=== PATIENT | male | born 1950 | race Caucasian/White ===

== ENCOUNTER 2016-09-12 13:34 | Inpatient (IN) | payer MEDICARE, OTHER, SELFPAY ==
[~2016-09-12] VITALS: Ht 177.8 cm; Wt 112.1 kg
[2016-09-12] MEDS ORDERED: SODIUM CHLORIDE FLUSH 10ML SYR IVF ONE (14:00)
[2016-09-12] MEDS ORDERED: SODIUM CHLORIDE 0.9% 1,000ML IVBOLUS ONE ×2 (14:00→15:30)
[2016-09-12] MEDS ORDERED: ONDANSETRON 2MG/ML, 2ML IVPush ONE (14:00)
[2016-09-12 14:07] LABS: HEMOGLOBIN 17.5 g/dL (13.7-18.0)
[2016-09-12 14:18] LABS: ASPARTATE AMINO TRANSFERASE 30 U/L (15-37); BLOOD UREA NITROGEN 44 mg/dL (7-18)
[2016-09-12] MEDS ORDERED: ONDANSETRON 2MG/ML, 2ML ONE (14:30)
[2016-09-12] MEDS ORDERED: FLUO20TA25 PO (15:11)
[2016-09-12] MEDS ORDERED: METF10002 PO (15:11)
[2016-09-12] MEDS ORDERED: HYDR50TA13 PO (15:11)
[2016-09-12] MEDS ORDERED: GLIP10TA13 PO (15:11)
[2016-09-12] MEDS ORDERED: METO-95 PO (15:11)
[2016-09-12] MEDS ORDERED: POTA10TA90 PO (15:11)
[2016-09-12] MEDS ORDERED: HYDR12.58 PO (15:11)
[2016-09-12] MEDS ORDERED: AMLO10TA2 PO (15:11)
[2016-09-12] MEDS ORDERED: LOVA40TA2 PO (15:11)
[2016-09-12] MEDS ORDERED: ONDANSETRON 2MG/ML, 2ML IVP PRN (16:30)
[2016-09-12] MEDS ORDERED: MORPHINE SULFATE 4 MG/ML, 1ML IVPush PRN (16:30)
[2016-09-12] MEDS: INSULIN REGULAR 100 UNITS/ML, 3ML VIAL SQ-INSULIN SCH ×2 (16:30→22:30)
[2016-09-12] MEDS ORDERED: LABETALOL 5MG/ML, 20ML IV PRN (16:30)
[2016-09-12 18:18] VITALS: BP 134/79
[2016-09-12] MEDS: PANTOPRAZOLE 40 MG IV IVPush SCH (18:23)
[2016-09-12] MEDS: SODIUM CHLORIDE 0.9% 1,000 ML IV SCH (18:23)
[2016-09-12] MEDS ORDERED: MAGNESIUM SULFATE PMX 4GM/100M 100 ML IV STA (18:35)
[2016-09-12 19:30] VITALS: BP 115/71
[2016-09-13 01:16] VITALS: BP 147/72
[2016-09-13 02:42] LABS: ICTOTEST POSITIVE
[2016-09-13] MEDS: INSULIN REGULAR 100 UNITS/ML, 3ML VIAL SQ-INSULIN SCH ×4 (04:30→20:15)
[2016-09-13 05:13] LABS: BLOOD UREA NITROGEN 53 mg/dL (7-18)
[2016-09-13 05:18] LABS: ASPARTATE AMINO TRANSFERASE 38 U/L (15-37)
[2016-09-13 05:22] LABS: HEMOGLOBIN 14.6 g/dL (13.7-18.0)
[2016-09-13] MEDS: SODIUM CHLORIDE 0.9% 1,000 ML IV SCH ×3 (05:50→20:12)
[2016-09-13 07:55] VITALS: BP 131/74
[2016-09-13] MEDS: PANTOPRAZOLE 40 MG IV IVPush SCH (08:32)
[2016-09-13 15:58] VITALS: BP 133/68
[2016-09-13 20:02] VITALS: BP 120/62
[2016-09-14 00:33] VITALS: BP 147/70
[2016-09-14] MEDS: SODIUM CHLORIDE 0.9% 1,000 ML IV SCH ×3 (02:47→20:09)
[2016-09-14 05:29] LABS: HEMOGLOBIN 13.2 g/dL (13.7-18.0)
[2016-09-14 05:30] LABS: ASPARTATE AMINO TRANSFERASE 48 U/L (15-37); BLOOD UREA NITROGEN 39 mg/dL (7-18)
[2016-09-14 07:23] VITALS: BP 138/76
[2016-09-14] MEDS: INSULIN REGULAR 100 UNITS/ML, 3ML VIAL SQ-INSULIN SCH ×4 (07:24→20:08)
[2016-09-14] MEDS: PANTOPRAZOLE 40 MG IV IVPush SCH (07:31)
[2016-09-14] MEDS ORDERED: ERGOCALCIFEROL 50,000 UNIT CAPSULE PO SCH (10:30)
[2016-09-14] MEDS ORDERED: FENTANYL PF 100 MCG/2ML ONE (10:33)
[2016-09-14] MEDS ORDERED: MIDAZOLAM 1 MG/ML, 5ML ONE (10:33)
[2016-09-14 12:57] VITALS: BP 135/77
[2016-09-14] MEDS: HYDROcodone/APAP 5/325 TABLET PO PRN (17:16)
[2016-09-14 19:01] VITALS: BP 145/71
[2016-09-15 01:02] VITALS: BP 165/71
[2016-09-15] MEDS: HYDROcodone/APAP 5/325 TABLET PO PRN (01:07)
[2016-09-15 05:11] LABS: HEMOGLOBIN 12.5 g/dL (13.7-18.0)
[2016-09-15 05:29] LABS: BLOOD UREA NITROGEN 23 mg/dL (7-18)
[2016-09-15] MEDS: SODIUM CHLORIDE 0.9% 1,000 ML IV SCH ×2 (05:42→11:30)
[2016-09-15 06:57] VITALS: BP 156/73
[2016-09-15] MEDS: INSULIN REGULAR 100 UNITS/ML, 3ML VIAL SQ-INSULIN SCH ×4 (07:55→20:36)
[2016-09-15] MEDS: PANTOPRAZOLE 40 MG IV IVPush SCH (07:55)
[2016-09-15 13:06] LABS: A/G RATIO 1.1 (0.7-1.7); ALBUMIN 3.7 g/dL (2.9-4.4); ALPHA-1-GLOBULIN 0.3 g/dL (0.0-0.4); BETA GLOBULIN 1.2 g/dL (0.7-1.3); GAMMA GLOBULIN 0.9 g/dL (0.4-1.8); PROTEIN TOTAL 7.1 g/dL (6.0-8.5)
[2016-09-15 13:40] VITALS: BP 162/80
[2016-09-15] MEDS ORDERED: MAGNESIUM SULFATE PMX 4GM/100M 100 ML IV ONE (14:00)
[2016-09-15 14:07] LABS: UR ALBUMIN 49.1 % (.); UR ALPHA-1-GLOBULIN 3.2 % (.); UR ALPHA-2-GLOBULIN 10.3 % (.); UR BETA GLOBULIN 28.9 % (.); UR GAMMA GLOBULIN 8.5 % (.); UR M-SPIKE % Not Observed % (Not Observed)
[2016-09-15] MEDS: METOPROLOL SUCCINATE 100 MG TAB.ER.24H PO SCH (16:15)
[2016-09-15] MEDS: LISINOPRIL 10 MG TABLET PO SCH (16:23)
[2016-09-15 18:30] VITALS: BP 162/69
[2016-09-15] MEDS: FLUOXETINE 10 MG CAP PO SCH (20:35)
[2016-09-15] MEDS ORDERED: LOVASTATIN 40 MG TABLET PO SCH (21:00)
[2016-09-16 00:50] VITALS: BP 174/76
[2016-09-16] MEDS: SODIUM CHLORIDE 0.9% 1,000 ML IV SCH (05:20)
[2016-09-16 05:54] LABS: HEMOGLOBIN 13.4 g/dL (13.7-18.0)
[2016-09-16 05:58] LABS: BLOOD UREA NITROGEN 16 mg/dL (7-18)
[2016-09-16 05:59] LABS: TOTAL IRON BINDING CAPACITY 265 mcg/dL (250-450)
[2016-09-16 07:55] VITALS: BP 177/78
[2016-09-16] MEDS: METOPROLOL SUCCINATE 100 MG TAB.ER.24H PO SCH (08:08)
[2016-09-16] MEDS: INSULIN REGULAR 100 UNITS/ML, 3ML VIAL SQ-INSULIN SCH (08:08)
[2016-09-16] MEDS: FLUOXETINE 10 MG CAP PO SCH (08:08)
[2016-09-16] MEDS: PANTOPRAZOLE 40 MG IV IVPush SCH (08:08)
[2016-09-16] MEDS: LISINOPRIL 10 MG TABLET PO SCH (08:08)
[2016-09-16] MEDS ORDERED: HYDROCHLOROTHIAZIDE 12.5 MG CAPSULE PO SCH (09:00)
[2016-09-16] MEDS ORDERED: AMLODIPINE 5 MG TABLET PO SCH (09:00)
[2016-09-16] MEDS ORDERED: LISI-170 PO (10:00)
[2016-09-16] MEDS ORDERED: PANT40TA3 PO (10:00)
[2016-09-16] MEDS ORDERED: ERGO500017 PO (10:00)
[2016-09-16] MEDS ORDERED: METO-93 PO ×2 (10:25→12:20)
[2016-09-17] MEDS ORDERED: LISINOPRIL 20 MG TABLET PO SCH (09:00)
== END 2016-09-16 13:25 | disposition home health service (06) | DRG 377 ==
LOC: ED 14:13 → EDIP 15:17 → 4EST 16:58
PROC: 0DB68ZX Excision of Stomach, Via Natural or Artificial Opening Endoscopic, Diagnostic (ICD-10-PCS; principal; 2016-09-15)
DX: K29.61 Other gastritis with bleeding (principal); N17.0 Acute kidney failure with tubular necrosis; R65.11 Systemic inflammatory response syndrome (SIRS) of non-infectious origin with acute organ dysfunction; I49.01 Ventricular fibrillation; E87.1 Hypo-osmolality and hyponatremia; E87.2 Acidosis; K29.81 Duodenitis with bleeding; E86.1 Hypovolemia; D75.1 Secondary polycythemia; E11.65 Type 2 diabetes mellitus with hyperglycemia; E66.9 Obesity, unspecified; E78.5 Hyperlipidemia, unspecified; E83.42 Hypomagnesemia; E83.52 Hypercalcemia; E86.0 Dehydration; E87.8 Other disorders of electrolyte and fluid balance, not elsewhere classified; G89.29 Other chronic pain; M54.9 Dorsalgia, unspecified; E83.51 Hypocalcemia; E83.39 Other disorders of phosphorus metabolism; I10 Essential (primary) hypertension; I25.10 Atherosclerotic heart disease of native coronary artery without angina pectoris; K21.9 Gastro-esophageal reflux disease without esophagitis; M19.90 Unspecified osteoarthritis, unspecified site; Z80.0 Family history of malignant neoplasm of digestive organs; Z83.3 Family history of diabetes mellitus; Z85.828 Personal history of other malignant neoplasm of skin; Z86.74 Personal history of sudden cardiac arrest; Z86.79 Personal history of other diseases of the circulatory system; Z87.891 Personal history of nicotine dependence; Z95.5 Presence of coronary angioplasty implant and graft; Z98.1 Arthrodesis status; Z68.35 Body mass index [BMI] 35.0-35.9, adult; K44.9 Diaphragmatic hernia without obstruction or gangrene; A08.4 Viral intestinal infection, unspecified; T62.8X1A Toxic effect of other specified noxious substances eaten as food, accidental (unintentional), initial encounter
CPT/HCPCS: 36415; 71010; 74176; 80053; 80069; 81001; 82010; 82306; 82436; 82550; 82570; 82728; 82800; 82962; 83540; 83550; 83605; 83690; 83735; 83935; 83970; 84100; 84133; 84153; 84155; 84156; 84165; 84166; 84300; 84550; 85025; 85610; 85730; 87040; 87205; 88305; 93005; 96361; 96374; J1815; J2250; J2405; J3010; C9113; G0103; J3475; J7030